=== PATIENT | male | born 1995 | race Caucasian/White ===

== ENCOUNTER 2018-02-25 01:34 | Emergency (ER) | payer BC ==
[2018-02-25] MEDS ORDERED: Ondansetron PF 4 MG/2 ML Vial ONE (02:09)
== END 2018-02-25 03:13 | disposition home or self-care (01) ==
LOC: ERS 01:34
DX: F10.129 Alcohol abuse with intoxication, unspecified (principal)
CPT/HCPCS: 96361; 96374; J2405